=== PATIENT | female | born 1935 | race Caucasian/White ===

== ENCOUNTER → 2019-02-04 07:53 | Outpatient (CLI) | payer MEDICARE, SELFPAY ==
--- NOTE | 2019-02-04 12:16 | NEURO ---
NCS and/or EMG Patient Report Ordering Doctor: Jc Calvin DATE OF SERVICE: 02/04/19 This is a bilateral lower extremity electrophysiologic study performed on this 83-year-old female with a history of burning pain in her toes bilaterally for approximately 5 to 6 years worse at night. There is no history of diabetes and no history of significant alcohol intake. Bilateral lower extremity sensory and motor nerve conduction study are performed. The common peroneal amplitudes are diminished bilaterally with mild prolongation of latencies and mild slowing of conduction velocities. The bilateral tibial motor distal latencies are prolonged with intact amplitudes and conduction velocities. The tibial and common peroneal F-wave latencies are intact and the tibial H reflexes are intact. Sural sensory responses bilaterally are normal. Right lower extremity needlelike tomography is performed. Muscles evaluated included the sensor digitorum brevis, abductor hallucis, medial gastrocnemius, anterior tibialis, vastus lateralis and vastus medialis muscles. Distal muscles did demonstrate large motor units with early recruitment but pathologic spontaneous activity was absent. More approximately these abnormalities resolved. 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
== END ==
PROVIDERS: Family Provider Family Medicine; PCP Family Medicine; Referring Provider Podiatrist; Visit Provider Podiatrist
DX: G62.9 Polyneuropathy, unspecified (principal); M79.674 Pain in right toe(s); M79.675 Pain in left toe(s)
CPT/HCPCS: 95886; 95910

== ENCOUNTER 2020-10-14 14:23 | Outpatient (RCR) | payer MEDICARE, SELFPAY | END 2020-10-14 23:59 | LOC: IMMUN 14:23 | PROVIDERS: PCP Family Medicine; Visit Provider Family Medicine | DX: Z23 Encounter for immunization (principal) | CPT/HCPCS: 0011A; 0012A; 91301 ==